=== PATIENT | male | born 1960 | race Caucasian/White ===

== ENCOUNTER 2019-12-09 05:54 | Day surgery (SDC) | payer SELFPAY ==
[2019-10-08 14:29] VITALS: BMI 21.9
--- NOTE | 2019-10-12 02:54 | HP_ITS ---
Intake Vital Signs 10/08/19 Height 5 ft 8 in 10/08/19 Weight: 144 lb 3 oz 10/08/19 Body Mass Index (BMI) 21.9 10/08/19 Blood Pressure 142/75 H 10/08/19 Blood Pressure Location Rt brachial 10/08/19 Blood Pressure Position Sitting 10/08/19 Respiratory Rate 18 10/08/19 Pulse Rate 96 10/08/19 Pulse Ox 97 Intake Visit Reasons: LEFT INGUINAL Chief Complaint: left inguinal hernia/ hx right inguinal Beauty Culture Teacher Required: No Is patient in pain?: No Allergies No Known Allergies Allergy (Verified 10/08/19 14:30) Medications multivitamin capsule 1 cap PO DAILY 10/08/19 [History] protein oral powder ea PO QDAY g 10/08/19 [History Confirmed 10/08/19] PFSH Medical History (Updated 10/08/19 @ 14:28 by Xiomara Castelan) No pertinent past medical history (Acute) Surgical History (Updated 10/08/19 @ 14:28 by Xiomara Castelan) History of right inguinal hernia repair (Acute ~1996) Family History (Updated 10/08/19 @ 14:29 by Xiomara Castelan) Father Hyperlipidemia Mother Hyperlipidemia Social History (Updated 10/12/19 @ 14:54 by Francisco Lewis MD) Smoking Status: Current some day smoker HPI HPI HPI: COLETTE FAULKNER, is a 59 M who presents to the office today for HPI HPI Surgical H&P: Yes HPI: COLETTE FAULKNER, is a 59 M who presents to the office today for left groin bulging. The patient reports that he has had left groin bulging for 12 years but is starting to bother him. He has a history of right anal hernia repair. He reports that when he lifts it bulges morning becomes more tender. ROS General General: No weight change, appetite, fatigue, colon cancer, breast cancer or weakness HEENT HEENT: No difficulty swallowing, eye injury, eye surgery, swollen glands or hoarseness Endo Endocrine: No thyroid disease, diabetes mellitus, thyroid cancer, Hair loss, heat intolerance or cold intolerance Cardio Cardiovascular: No murmur, pacemaker, heart disease, atrial fibrillation, high blood pressure, heart attack, heart stent, palpitations, shortness of breat with exertion or chest pain Resp Respiratory: No shortness of breath, No sleep apnea, No cough, No COPD, No asthma, No emphysema, No wheezing Gastro Gastrointestinal: No abdominal pain, No nausea or vomiting, No diarrhea, No constipation, No blood in stool, No acid reflux, No hemorrhoids, No ulcers, No gallbladder problem, No black,tarry stools Eric Hematologic: No blood thinners, No blood disorders, No bleeding, No anemia, No blood clots Neuro Neurologic: No weakness Exam Const General: cooperative Orientation: alert, oriented x3 HENMT Head: normal to inspection Ears: hearing grossly normal bilaterally Eyes General: appearance normal, both eyes and all related structures Visual Kiser: normal visual kiser by confrontation Neck Neck: normal visual inspection Chest Chest palpation & inspection: normal inspection of the chest Resp Effort & Inspection: normal respiratory effort Auscultation: clear to auscultation bilaterally Cardio Rate: regular rate Rhythm: regular rhythm Heart Sounds: no murmurs GI Inspection: non-distended Palpation: soft, hernia indirect inguinal on the left, nontender Musc Cervical Spine: normal cervical lordosis, cervical ROM normal Skin General: no rashes or lesions noted Neuro General: alert, oriented x3 Cranial Nerves: CN's II-XI intact bilaterally Cognition: normal cognition Extrem General: normal to inspection, full ROM Psych Appearance: grossly normal Affect: normal affect Assessment & Plan Problems 1. Left inguinal hernia K40.90 Plan The patient has a large reducible left inguinal hernia. He has a history of right inguinal hernia repair. I discussed left inguinal hernia repair with him in detail. I discussed open and laparoscopic repair. I discussed robotic assisted laparoscopic inguinal hernia repair the patient and he would like to proceed with laparoscopic repair. I discussed the risks including but not limited to bleeding, infection, spermatic cord injury, bowel injury, hernia recurrence. Patient understands the risks and is willing to proceed. Francisco Lewis MD Pager: [facility] [address] [place] [address], [address] [place] [address] Office: Coding Level of Care Code Off vis,new,level 4 Diagnoses Left inguinal hernia K40.90 Time Spent (min) 45 10/12/19 1585 <Electronically signed by Francisco michael MD> Date _ Francisco Lewis MD I have re-examined the patient. There are no clinical changes since date of exam.
--- NOTE | 2019-12-04 09:44 | EKG12_ITS ---
Test Reason : PREOP Blood Pressure : / mmHG Vent. Rate : 071 BPM Atrial Rate : 071 BPM P-R Int : 150 ms QRS Dur : 082 ms QT Int : 380 ms P-R-T Axes : 001 061 029 degrees QTc Int : 412 ms Normal sinus rhythm Normal ECG Confirmed by JOON ESTRADA, JANICE ([id number]), avid editor ANAND PARSONS ([id number]) on 12/07/2019 8:58:28 AM Referred By: Francisco Lewis Confirmed By:JANICE DUPREE MD
[2019-12-09] VITALS (7 sets, daily range): BP systolic 112–125; BP diastolic 64–90; PULSE 61–84; RESP 16; TEMP 36.3–37.1; O2SAT 95–100; BMI 22.1
[2019-12-09] MEDS: Lactated Ringers 1,000 ML 100 ML IV ×2 (06:43→06:45)
[2019-12-09] MEDS: Cefazolin 2 GM in 0.9% Normal Saline 100 ML IV (07:25)
[2019-12-09] MEDS: Bupivacaine Mpf 0.5% 30 ML VIAL (08:31)
--- NOTE | 2019-12-09 08:48 | PCM.OPRPT ---
Problem List (1) Left inguinal hernia Status: Acute Report of Operation Date of Procedure: 12/09/19 Pre-Operative Diagnosis: Left inguinal hernia Post-Operative Diagnosis: Same Surgery/Procedure Performed:: Robotic assisted laparoscopic left inguinal hernia repair with mesh Specimen's removed: None Description of Procedure: Patient was brought to the operating room and general anesthesia was induced. The abdomen was prepped and draped in usual sterile fashion. A midline incision was made superior to the umbilicus and the Veress needle was placed into the abdomen and a drop test was performed. The abdomen was insufflated to 15 mmHg. The needle was removed and the camera port was placed through this incision into the abdomen. The camera was inserted into the abdomen to inspect. There were no injuries from entry. The abdomen was inspected and there was an inguinal hernia on the left. Next a right 8 mm port was placed in the right abdomen under direct visualization and an 8 mm port was placed in the left abdomen under direct visualization. The patient was then placed in steep Trendelenburg and the robot was docked. Using the cautery scissors an incision was made in the peritoneum and this was dissected inferiorly until the hernia was reached. The colon was tightly adherent to the peritoneum. The hernia contents were reduced along with the peritoneum and divided from adhesions to the spermatic cord. These contents were left attached to the peritoneum for fear that there is any colonic contents. Pro-partition assembly machine operator mesh was then unfolded and placed over the hernia defect and behind this tissue. The peritoneum was reapproximated using a running 3-0V lock suture completely covering the mesh. There was good coverage of the mesh and the hernia defect. The abdomen was then desufflated and the robot was undocked and the ports were removed. The skin incisions were anesthetized and closed with interrupted 4-0 Monocryl sutures as well as Steri-Strips and bandages. The scrotum was checked at the end the case and contain both testicles. Patient tolerated the procedure well was brought to PACU in stable condition. Grafts/Implants Used: Pro-partition assembly machine operator mesh - Admit VTE Documentation VTE Mechan Device Prophylaxis: SCD's
--- NOTE | 2019-12-09 08:55 | PCM.DC.HER ---
Discharge Diet: Light diet - advance as tolerated Discharge Activity: Return to Normal Activity, May Not Drive - for 2-3 days or while taking narcotic pain meds., May Shower - with the bandage in place 1-2 days after surgery. Lifting Restrictions: 20 pounds for 4 weeks. Additional Activity Instructions:: Climbing stairs is fine, walking is encouraged. Sitting in bed may be uncomfortable. Sitting up using your lateral muscles (sitting up sideways) is usually more comfortable. Do not drive, work heavy equipment of sign legal documents for 24 hours. If your hernia repair was an ingunial repair, you may have scrotal swelling, an ice pack and/or athletic support can provide more comfort. Pain medications may cause nausea, you should typically eat light foods as you take your pain medications. Pain medications may also cause constipation. If you have difficulty with this, discuss with your doctor. Call your doctor if your incision/area has: Continuous Slow Oozing, Sudden Increased Bleeding, Increased Pain/ Swelling, Increased Redness, Foul Smelling Discharge Call your doctor if you observe: Fever of 101 or Higher Suture Line Care: Avoid Pulling/Pushing, Avoid Pinching/Bending Change Dressing in (Days):: 3 - Leave steri-strips for 1 week. May protect with a guaze bandaid. Cleanse incision/area with: Keep Dressing Clean & Dry Allergies/Adverse Reactions: Allergies No Known Allergies Allergy (Verified 12/03/19 10:57) Medications to take at Discharge Amino AC/Whey Prot Conc, Isol [Whey Protein Powder] 1 unit PO DAILY PRN 12/03/19 Multivitamin [Multivitamins] 1 ea PO DAILY 12/03/19 Oxycodone HCl/Acetaminophen [Percocet 5-325 mg Tablet] 1 - 2 tab PO Q6H PRN 4 Days #15 tablet 12/09/19 The following prescriptions were given: Oxycodone HCl/Acetaminophen [Percocet 5-325 mg Tablet] 1 - 2 tab PO Q6H PRN 4 Days #15 tablet PRN Reason: Pain Score 4-10/10 Transmission Status: Sent to [facility] Primary Care Physician: Cuca Wheat PA [Primary Care Provider] - Test Results: Test results from this visit will be discussed in further detail at your follow-up appointment, if applicable. Please Follow Up With: Francisco Lewis MD When: Please call to schedule 2 week follow up appointment. [phone]
--- NOTE | 2019-12-10 11:30 | HP.PCM_ITS ---
Problem List (1) Left inguinal hernia Status: Acute History of Present Illness Date of Admission: 12/09/19 The patient is a 59 year old M who has been having left groin bulging. I previously discussed robotic assisted laparoscopic repair of the left groin with him. He has had no changes since the following visit. Past Medical History Medical History: Medical History (Last Updated 10/08/19 @ 14:28 by Xiomara Castelan) No pertinent past medical history Z78.9 Allergies No Known Allergies Allergy (Verified 12/03/19 10:57) Home Medications: Ambulatory Orders Medication Instructions Recorded Amino AC/Whey Prot Conc, Isol 1 unit PO DAILY PRN 12/03/19 [Whey Protein Powder] Multivitamin [Multivitamins] 1 ea PO DAILY 12/03/19 Oxycodone HCl/Acetaminophen 1 - 2 tab PO Q6H PRN 4 Days #15 tab 12/09/19 [Percocet 5-325 mg Tablet] Surgical History: Surgical History (Last Updated 10/08/19 @ 14:28 by Xiomara Castelan) History of right inguinal hernia repair Onset Date: ~1996 Z98.890, Z87.19 Smoking Status: Never smoker Tobacco Use: Chew - *Family History Maternal Family History: Family History (Last Updated 10/08/19 @ 14:29 by Xiomara Castelan) Father Hyperlipidemia Mother Hyperlipidemia Review of Systems Constitutional: Denies: Anorexia, Fever Respiratory: Denies: Cough Gastrointestinal: Reports: - - Left groin bulging. Denies: Abdominal Pain, Nausea, Vomiting Genitourinary: Denies: Dysuria Neurological: Denies: Balance problems Psychiatric: Denies: Anxiety, Depression Hematologic/ Lymphatic: Denies: Anemia VTE Information - Inpt Only VTE Present on Admission: No VTE Mechan Device Prophylaxis: SCD's - Physical Exam Vitals/I&O's: Vital Signs Temp Pulse Resp BP Pulse Ox 98.6 F 84 16 124/74 H 100 12/09/19 11:38 12/09/19 11:38 12/09/19 11:38 12/09/19 11:38 12/09/19 11:38 Oxygen Delivery Method Room Air Weight: 145 lb 8.081 oz Body Mass Index (BMI) 22.1 Intake and Output for Last 24 Hours 12/08/19 12/09/19 12/10/19 23:59 23:59 23:59 Intake Total 1710 / 1710 Balance 1709 1710 General: Alert, Oriented x3 Neck: No JVD Lungs: Normal air movement Cardiovascular: Regular rate, Regular Rhythm Abdomen: Soft, Non Tender, Non-Distended Assessment/Plan All Active Problems (Last Updated 10/08/19 @ 14:28 by Xiomara Castelan) Left inguinal hernia (Acute) 59-year-old male with left inguinal hernia 1. I had previously discussed robotic assisted laparoscopic left inguinal hernia repair with mesh with the patient. I went over the risks once more with him and there have been no changes since his last visit. Plan to proceed with left inguinal hernia repair with mesh. Francisco Lewis MD Pager: [facility] [address] [place] [address], [address] [place] [address] Office:
== END 2019-12-09 11:44 ==
LOC: SDC 05:58 → AC 05:59
PROVIDERS: Family Provider Family Medicine; PCP Physician Assistant; Referring Provider Surgery; Visit Provider Surgery
PROC: 0YQ64ZZ Repair Left Inguinal Region, Percutaneous Endoscopic Approach (ICD-10-PCS; principal; 2019-12-09 07:10)
DX: Z01.810 Encounter for preprocedural cardiovascular examination (principal)
CPT/HCPCS: 93005; J7120